=== PATIENT | male | born 1990 | race Caucasian/White ===

== ENCOUNTER 2018-06-18 10:33 | Emergency (ER) | payer SELFPAY ==
--- NOTE | 2018-06-18 12:25 | UC ---
Respiratory Complaint HPI - HPI Summary HPI Summary: A WEEK AND A HALF OF SINUS CONGESTION, MILD COUGH AND NASAL DRAINAGE. FEELS TIRED. NO FEVER, NAUSEA/VOMITING. NO HEADACHE. - History of Current Complaint Chief Complaint: UCGeneralIllness Stated Complaint: SINUS Time Seen by Provider: 06/18/18 12:05 Hx Obtained From: Patient Onset/Duration: Gradual Onset, Lasting Days, Still Present Timing: Constant Severity Initially: Moderate Severity Currently: Moderate Pain Intensity: 0 Pain Scale Used: 0-10 Numeric Character: Cough: Nonproductive Aggravating Factors: Nothing Alleviating Factors: Nothing Associated Signs And Symptoms: Positive: URI, Nasal Congestion, Sinus Discomfort. Negative: Dyspnea, Fever, Chills, Wheezing - Allergies/Home Medications Allergies/Adverse Reactions: Allergies Allergy/AdvReac Type Severity Reaction Status Date / Time No Known Allergies Allergy Verified 06/18/18 11:01 Home Medications: Home Medications Indomethacin CAP* [Indocin CAP*] 25 mg PO TID PRN 06/18/18 [History Confirmed ] PMH/Surg Hx/FS Hx/Imm Hx Neurological History: Migraine - Surgical History Surgical History: Yes Surgery Procedure, Year, and Place: right wrist - Family History Known Family History: Positive: Non-Contributory - Social History Alcohol Use: Occasionally Substance Use Type: None Smoking Status (MU): Never Smoked Tobacco Review of Systems All Other Systems Reviewed And Are Negative: Yes Constitutional: Positive: Fatigue. Negative: Fever ENT: Positive: Nasal Discharge, Sinus Congestion Respiratory: Positive: Cough Cardiovascular: Positive: Negative Gastrointestinal: Positive: Negative Physical Exam Triage Information Reviewed: Yes Appearance: Well-Appearing, No Pain Distress, Well-Nourished Vital Signs: Initial Vital Signs Temp 98.9 F 06/18/18 10:57 Pulse 62 06/18/18 10:57 Resp 18 06/18/18 10:57 BP 116/56 06/18/18 10:57 Pulse Ox 98 06/18/18 10:57 Vital Signs Reviewed: Yes Eyes: Positive: Conjunctiva Clear ENT: Positive: Hearing grossly normal, Pharynx normal, TMs normal. Negative: Tonsillar swelling, Tonsillar exudate, Sinus tenderness Neck: Positive: Supple, Nontender, No Lymphadenopathy Respiratory Exam: Normal Cardiovascular Exam: Normal Abdomen Description: Positive: Soft Musculoskeletal: Positive: No Edema Neurological: Positive: Alert Psychological: Positive: Age Appropriate Behavior Skin: Negative: Rashes Respiratory Course/Dx - Course Course Of Treatment: LIKELY VIRALLY MEDIATED SINUS INFECTION. ADVISED PATIENT TO FOLLOW CONSERVATIVE MEASURES FOR NOW AND FOLLOW-UP WITH HIS PCP OR RETURN HERE TO THE URGENT CARE IF HIS SYMPTOMS DO NOT IMPROVE EXPECTED OR WORSEN. - Differential Dx/Diagnosis Provider Diagnosis: Acute sinusitis Discharge - Sign-Out/Discharge Documenting (check all that apply): Patient Departure All imaging exams completed and their final reports reviewed: No Studies - Discharge Plan Condition: Stable Disposition: HOME Patient Education Materials: Sinusitis (ED) Referrals: Karen Ordaz MD [Primary Care Provider] - If Needed Additional Instructions: YOUR SYMPTOMS ARE LIKELY VIRALLY MEDIATED AND SHOULD RESOLVE ON THEIR OWN WITH TIME. NO INDICATION FOR ANTIBIOTICS AT PRESENT. REST, HYDRATE, OTC MEDS NEEDED. USE OTC AFRIN FOR NASAL CONGESTION. 2 SPRAYS IN EACH NOSTRIL TWICE DAILY NEEDED. DO NOT USE FOR MORE THAN 3-4 DAYS IN A ROW TO PREVENT DEVELOPING REBOUND CONGESTION. - Billing Disposition and Condition Condition: STABLE Disposition: Home
== END 2018-06-18 12:36 | disposition home or self-care (01) ==
LOC: UCEAST 10:33
DX: J01.90 Acute sinusitis, unspecified (principal); R53.83 Other fatigue; R05 Cough; G43.909 Migraine, unspecified, not intractable, without status migrainosus
CPT/HCPCS: 99201; G0463

== ENCOUNTER 2018-10-30 18:52 | Emergency (ER) | payer BC ==
[2018-10-30 19:25] VITALS: BP 139/72
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
[2018-10-30] MEDS ORDERED: Tetan/Diph/Pertus SYR(Tdap)* 0.5 ML SYR(BOOSTRIX) use SYR IM ONE (19:35)
[2018-10-30] MEDS ORDERED: Cephalexin CAP* 500 MG PO ONE (19:35)
== END 2018-10-30 19:54 | disposition home or self-care (01) ==
LOC: UCCORT 18:52
DX: S51.811A Laceration without foreign body of right forearm, initial encounter (principal); S50.11XA Contusion of right forearm, initial encounter; S50.811A Abrasion of right forearm, initial encounter; V18.0XXA Pedal cycle driver injured in noncollision transport accident in nontraffic accident, initial encounter; Y93.55 Activity, bike riding; Y92.9 Unspecified place or not applicable; Z23 Encounter for immunization
CPT/HCPCS: 90715; 96372; 99212; A9270-GY; G0463